=== PATIENT | female | born 1995 | race Caucasian/White ===

== ENCOUNTER 2016-11-07 19:06 | Emergency (ER) | payer OTHER ==
[~2016-11-07] VITALS: Ht 170.2 cm; Wt 150.0 kg
[~2016-11-07 19:06] MED LIST: HYDR-3498 PO; IBUP-1542 PO
[2016-11-07 19:25] VITALS: Ht 170.2 cm; Wt 150.0 kg
[2016-11-07] MEDS ORDERED: CEPH-443 PO (19:45)
[2016-11-07] MEDS ORDERED: IBUP-1542 PO (19:45)
--- NOTE | 2016-11-07 20:00 | ERD ---
ER Documentation Chief Complaint Date/Time DATE: 11/07/16 TIME: 19:57 Chief Complaint requesting check on her right hand tattoo site painful HPI 20 year-old female presents in emergency department for complaints of some yellowish discharge coming out from the right forearm tattoo that she got 3 days ago. Patient is complaining of pain, 6/10 scale, is worse upon touching the area. Patient's complain of redness surrounding the area. ROS All systems reviewed and are negative except as per history of present illness. Medications Home Meds Active Scripts Cephalexin* (Keflex*) 500 Mg Capsule, 500 MG PO QID for 10 Days, CAP Prov:JOSEPH DORADO [employer] 11/07/16 Ibuprofen* (Motrin*) 600 Mg Tab, 600 MG PO Q6H Y for PAIN AND OR ELEVATED TEMP, #30 TAB Prov:JOSEPH DORADO [employer] 11/07/16 Hydrocodone Bit-Acetaminophen* (Rock*) 5-325 Mg Tab, 1 TAB PO Q6 Y for PAIN, # 14 TAB Prov:ARPIT NEAL MD 11/14/14 Ibuprofen* (Ibuprofen*) 600 Mg Tablet, 600 MG PO Q6H Y for PAIN AND/OR INFLAMMATION, #30 Prov:ARPIT NEAL MD 11/14/14 Allergies Allergies: Coded Allergies: No Known Allergy (Unverified , 01/10/16) PMhx/Soc Medical and Surgical Hx: pt denies Medical Hx, pt denies Surgical Hx Hx Alcohol Use: No Hx Substance Use: No Hx Tobacco Use: No FmHx Family History: No coronary disease, No diabetes, No other Physical Exam Vitals Vital Signs Date Time Temp Pulse Resp B/P Pulse Ox O2 Delivery O2 Flow Rate FiO2 11/07/16 19:25 97.4 87 20 146/71 100 Physical Exam GENERAL: The patient is well developed and appropriate for usual state of health, in no apparent distress. CHEST: Clear to auscultation bilaterally. There are no rales, wheezes or rhonchi. HEART: Regular rate and rhythm. No murmurs, clicks, rubs or gallops. No S3 or S4. ABDOMEN: Soft, nontender and nondistended. Good bowel sounds. No rebound or guarding. No gross peritonitis. No gross organomegaly or masses. No Guerrero sign or McBurney point tenderness. BACK: No midline or flank tenderness. EXTREMITIES: Equal pulses bilaterally. There is no peripheral clubbing, cyanosis or edema. No focal swelling or erythema. Full range of motion. Grossly neurovascularly intact. NEURO: Alert and oriented. Cranial nerves 2-12 intact. Motor strength in all 4 extremities with 5/5 strength. Sensation grossly intact. Normal speech and gait. SKIN: Noted some redness and some yellowish serosanguineous discharge coming from the tattoo wound. There is no apparent ecchymosis or petechia. The skin is warm and dry. HEMATOLOGIC AND LYMPHATIC: There is no evidence of excessive bruising or lymphedema. No gross cervical, axillary, or inguinal lymphadenopathy. Procedures/MDM Medical decision making: Patient symptoms is likely consistent with infected wound skin tattoo. No symptoms of any abscesses. No symptoms of any neurovascular compromise. Prescription was given for Keflex, ibuprofen, is advised follow up with primary care doctor in 2 days for reevaluation of symptoms. Patient was advised to return to emergency department for any worsening symptoms. Departure Diagnosis: Primary Impression: Infected wound Additional Impression: Tattoo of skin Condition: Stable Patient Instructions: Wound Care JOSEPH DORADO NP November 07, 2016 20:00
== END 2016-11-07 19:53 | disposition home or self-care (01) ==
LOC: E/R 19:06
DX: L08.9 Local infection of the skin and subcutaneous tissue, unspecified (principal)
CPT/HCPCS: 99283

== ENCOUNTER 2017-06-07 13:23 | Emergency (ER) | END 2017-06-07 14:44 | disposition home or self-care (01) ==